=== PATIENT | female | born 1985 | race Two or more races ===

== ENCOUNTER 2019-01-05 09:38 | Emergency (ER) | payer OTHER ==
[~2019-01-05] VITALS: Ht 152.4 cm; Wt 44.5 kg
== END 2019-01-05 15:51 | disposition home or self-care (01) ==
LOC: ER 09:38
DX: K52.89 Other specified noninfective gastroenteritis and colitis (principal); R10.2 Pelvic and perineal pain

== ENCOUNTER 2021-04-03 08:00 | Outpatient (CLI) | payer OTHER | END 2021-04-03 08:30 | disposition home or self-care (01) | LOC: PPH VACUNA 08:00 | PROVIDERS: ATTEND Emergency Medicine Pediatric Emergency Medicine | DX: Z23 Encounter for immunization (principal) ==

== ENCOUNTER 2021-05-15 09:04 | Emergency (ER) | payer OTHER ==
[~2021-05-15] VITALS: Ht 152.4 cm; Wt 45.4 kg
[2021-05-15] MEDS ORDERED: DICLOFENAC POTA50 MG PO (11:44)
[2021-05-15] MEDS ORDERED: ORPHENADRINE C100 MG PO (11:44)
== END 2021-05-15 13:17 | disposition home or self-care (01) ==
LOC: ER 09:04
DX: B34.9 Viral infection, unspecified (principal); J32.9 Chronic sinusitis, unspecified; R51.9 Headache, unspecified; Z03.818 Encounter for observation for suspected exposure to other biological agents ruled out

== ENCOUNTER 2023-06-17 11:52 | Emergency (ER) | payer OTHER ==
[~2023-06-17] VITALS: Ht 152.4 cm; Wt 47.6 kg
[~2023-06-17 11:52] MED LIST: DICLOFENAC POTA50 MG PO; ORPHENADRINE C100 MG PO
[2023-06-17] MEDS ORDERED: FAMOTIDINE/PF 20 MG/2 ML VIAL IV ONE (15:15)
[2023-06-17] MEDS ORDERED: 0.9 % SODIUM CHLORIDE 1,000 ML IV ONE (15:15)
[2023-06-17] MEDS ORDERED: ONDANSETRON HCL 2 MG/ML VIAL IV ONE (15:15)
[2023-06-17 16:02] LABS: HEMATOCRIT 37.8 % (36.0-45.00); HEMOGLOBIN 11.7 g/dL (12.0-15.00); MEAN CORPUSCULAR HEMOGLOBIN 18.7 pg (27.00-32.0); MEAN CORPUSCULAR HGB CONC 30.9 g/dl (32.0-36.0); PLATELET COUNT 432 K/uL (150-450); RED BLOOD COUNT 6.26 M/uL (4.00-6.00); RED CELL DISTRIBUTION WIDTH 16.8 % (11.5-14.5)
[2023-06-17 16:03] LABS: MEAN CELL VOLUME 60.4 fL (80.00-100.00)
[2023-06-17 16:32] LABS: ALBUMIN 2.9 gm/dL (3.4-5.0); BILIRUBIN TOTAL 0.73 mg/dL (0.3-1.2); CALCIUM 9.2 mg/dL (8.5-10.1); CREATININE SERUM 0.4 mg/dL (0.55-1.02); GFR 179.6; GLOBULINA 3.6 G/DL (2.4-3.5); POTASSIUM 4.24 mEq/L (3.5-5.1); TOTAL PROTEIN 6.5 gm/dL (6.4-8.2)
[2023-06-17 18:29] LABS: URINE APPEARANCE Clear; URINE BILIRRUBIN Negative (NEGATIVE); URINE BLOOD Negative; URINE COLOR Yellow; URINE GLUCOSE Negative (NEGATIVE); URINE LEUKOCYTE Negative; URINE NITRATE Negative; URINE PROTEIN Trace (NEGATIVE); URINE UROBILINOGEN 0.2 E.U./dl
[2023-06-17 18:33] LABS: URINE BACTERIA 1233.5 uL (0.0-1933); URINE EPITHELIAL CELLS 30.3 uL (0.0-38.8); URINE WBC 18.3 uL (0.0-23.2)
[2023-06-17] MEDS ORDERED: ONDANSETRON ODT4 MG PO (19:11)
[2023-06-17] MEDS ORDERED: INTESTINEX680 M1 PO (19:11)
[2023-06-17] MEDS ORDERED: PEPCID AC20 MG PO (19:11)
[2023-06-17] MEDS ORDERED: LACTOBACILLUS ACIDOPHILUS 1 CAP CAP PO ONE (19:15)
== END 2023-06-17 19:32 | disposition home or self-care (01) ==
LOC: ER 11:52
PROVIDERS: Nurse Practitioner Family
DX: O26.891 Other specified pregnancy related conditions, first trimester (principal); R10.2 Pelvic and perineal pain; O21.8 Other vomiting complicating pregnancy; K52.9 Noninfective gastroenteritis and colitis, unspecified; Z3A.08 8 weeks gestation of pregnancy

== ENCOUNTER 2023-06-23 10:02 | Emergency (ER) | payer OTHER ==
[~2023-06-23] VITALS: Ht 152.4 cm; Wt 48.1 kg
[~2023-06-23 10:02] MED LIST changes: +INTESTINEX680 M1 PO; +ONDANSETRON ODT4 MG PO; +PEPCID AC20 MG PO
[2023-06-23 11:28] LABS: HEMATOCRIT 33.4 % (36.0-45.00); HEMOGLOBIN 10.8 g/dL (12.0-15.00); MEAN CELL VOLUME 60.2 fL (80.00-100.00); MEAN CORPUSCULAR HEMOGLOBIN 19.5 pg (27.00-32.0); MEAN CORPUSCULAR HGB CONC 32.4 g/dl (32.0-36.0); PLATELET COUNT 442 K/uL (150-450); RED BLOOD COUNT 5.54 M/uL (4.00-6.00); RED CELL DISTRIBUTION WIDTH 16.9 % (11.5-14.5)
[2023-06-23 11:50] LABS: URINE APPEARANCE Clear; URINE BILIRRUBIN Negative (NEGATIVE); URINE BLOOD Negative; URINE COLOR Yellow; URINE GLUCOSE Negative (NEGATIVE); URINE LEUKOCYTE Negative; URINE NITRATE Negative; URINE PROTEIN Negative (NEGATIVE); URINE UROBILINOGEN 0.2 E.U./dl
[2023-06-23 11:54] LABS: URINE BACTERIA 138.5 uL (0.0-1933); URINE EPITHELIAL CELLS 2.2 uL (0.0-38.8); URINE WBC 2.6 uL (0.0-23.2)
[2023-06-23 12:06] LABS: URINE RBC 1.1 uL (0.0-20.8)
[2023-06-23] MEDS ORDERED: ANALPRAM HC 2.530 GM RECTAL (12:37)
== END 2023-06-23 13:21 | disposition home or self-care (01) ==
LOC: ER 10:02
PROVIDERS: General Practice
DX: O99.611 Diseases of the digestive system complicating pregnancy, first trimester (principal); Z3A.09 9 weeks gestation of pregnancy; K62.5 Hemorrhage of anus and rectum; K64.8 Other hemorrhoids

== ENCOUNTER 2023-07-18 12:34 | Outpatient (CLI) | payer OTHER ==
[~2023-07-18 12:34] MED LIST changes: +ANALPRAM HC 2.530 GM RECTAL
== END 2023-07-18 12:40 | disposition home or self-care (01) ==
LOC: PRENATAL 12:34
PROVIDERS: ATTEND Obstetrics & Gynecology Maternal & Fetal Medicine
DX: O36.80X0 Pregnancy with inconclusive fetal viability, not applicable or unspecified (principal); Z36.82 Encounter for antenatal screening for nuchal translucency; O09.519 Supervision of elderly primigravida, unspecified trimester; Z3A.12 12 weeks gestation of pregnancy

== ENCOUNTER → 2023-11-07 09:05 | Outpatient (CLI) | payer OTHER ==
[~2023-11-07 09:05] MED LIST changes: +VISTARIL25 MG PO
== END | disposition home or self-care (01) ==
LOC: PRENATAL 09:05
PROVIDERS: ATTEND Obstetrics & Gynecology Maternal & Fetal Medicine
DX: O26.849 Uterine size-date discrepancy, unspecified trimester (principal); O09.519 Supervision of elderly primigravida, unspecified trimester; O36.5990 Maternal care for other known or suspected poor fetal growth, unspecified trimester, not applicable or unspecified; Z3A.28 28 weeks gestation of pregnancy

== ENCOUNTER 2023-11-14 09:23 | Outpatient (CLI) | payer OTHER | END 2023-11-14 09:24 | disposition home or self-care (01) | LOC: PRENATAL 09:23 | PROVIDERS: ATTEND Obstetrics & Gynecology Maternal & Fetal Medicine | DX: O36.8130 Decreased fetal movements, third trimester, not applicable or unspecified (principal); O09.513 Supervision of elderly primigravida, third trimester; O36.5930 Maternal care for other known or suspected poor fetal growth, third trimester, not applicable or unspecified; Z3A.29 29 weeks gestation of pregnancy ==

== ENCOUNTER 2023-11-28 08:29 | Outpatient (CLI) | payer OTHER | END 2023-11-28 08:30 | disposition home or self-care (01) | LOC: PRENATAL 08:29 | PROVIDERS: ATTEND Obstetrics & Gynecology Maternal & Fetal Medicine | DX: O26.849 Uterine size-date discrepancy, unspecified trimester (principal); O09.519 Supervision of elderly primigravida, unspecified trimester; O36.8199 Decreased fetal movements, unspecified trimester, other fetus; O36.5990 Maternal care for other known or suspected poor fetal growth, unspecified trimester, not applicable or unspecified; Z3A.31 31 weeks gestation of pregnancy ==

== ENCOUNTER 2023-12-06 14:48 | Emergency (ER) | payer OTHER ==
[~2023-12-06] VITALS: Ht 152.4 cm; Wt 47.6 kg
[2023-12-06] MEDS ORDERED: CHILDREN'S ASPI81 MG (15:03)
[2023-12-06] MEDS ORDERED: PRENATAL 19 TA1 EAC2 (15:03)
[2023-12-06] MEDS ORDERED: PROFERRIN-FORT1 EACH (15:03)
[2023-12-06 16:58] LABS: HEMATOCRIT 34.2 % (36.0-45.00); HEMOGLOBIN 10.6 g/dL (12.0-15.00); MEAN CELL VOLUME 62.2 fL (80.00-100.00); MEAN CORPUSCULAR HEMOGLOBIN 19.2 pg (27.00-32.0); PLATELET COUNT 368 K/uL (150-450); RED CELL DISTRIBUTION WIDTH 18.3 % (11.5-14.5)
[2023-12-06] MEDS ORDERED: 0.9 % SODIUM CHLORIDE 1,000 ML IV STA (17:09)
[2023-12-06 17:29] LABS: BILIRUBIN TOTAL 0.19 mg/dL (0.3-1.2); CREATININE SERUM 0.5 mg/dL (0.55-1.02); GFR 138.83; GLOBULINA 4.4 G/DL (2.4-3.5); POTASSIUM 3.51 mEq/L (3.5-5.1); TOTAL PROTEIN 6.4 gm/dL (6.4-8.2)
[2023-12-06 17:49] LABS: PH,URINE 5.5 (5.0-8.0); URINE APPEARANCE Clear; URINE BILIRRUBIN Negative (NEGATIVE); URINE BLOOD Negative; URINE COLOR Yellow; URINE GLUCOSE Negative (NEGATIVE); URINE KETONE Negative (NEGATIVE); URINE LEUKOCYTE Negative; URINE NITRATE Negative; URINE PROTEIN Negative (NEGATIVE); URINE UROBILINOGEN 0.2 E.U./dl
[2023-12-06 17:53] LABS: URINE BACTERIA 457.3 uL (0.0-1933); URINE EPITHELIAL CELLS 16.8 uL (0.0-38.8); URINE RBC 2.2 uL (0.0-20.8); URINE WBC 5.3 uL (0.0-23.2)
== END 2023-12-06 18:46 | disposition home or self-care (01) ==
LOC: ER 14:50
PROVIDERS: General Practice
DX: O26.893 Other specified pregnancy related conditions, third trimester (principal); Z3A.32 32 weeks gestation of pregnancy; R53.1 Weakness; D69.3 Immune thrombocytopenic purpura; Z20.822 Contact with and (suspected) exposure to COVID-19

== ENCOUNTER 2023-12-09 11:11 | Outpatient (CLI) | payer OTHER ==
[~2023-12-09 11:11] MED LIST changes: +CHILDREN'S ASPI81 MG; +PRENATAL 19 TA1 EAC2; +PROFERRIN-FORT1 EACH
[2023-12-09] MEDS ORDERED: PRENATAL TABLE1 EAC1 (12:05)
[2023-12-09] MEDS ORDERED: 0.9 % SODIUM CHLORIDE 1,000 ML IV SCH (12:15)
[2023-12-09 12:38] LABS: URINE APPEARANCE Clear; URINE BILIRRUBIN Negative (NEGATIVE); URINE BLOOD Negative; URINE COLOR Yellow; URINE GLUCOSE Negative (NEGATIVE); URINE KETONE Negative (NEGATIVE); URINE LEUKOCYTE Negative; URINE NITRATE Negative; URINE PROTEIN Negative (NEGATIVE); URINE UROBILINOGEN 0.2 E.U./dl
[2023-12-09 12:41] LABS: URINE EPITHELIAL CELLS 36.7 uL (0.0-38.8); URINE WBC 5.8 uL (0.0-23.2)
[2023-12-09 12:49] LABS: HEMATOCRIT 31.4 % (36.0-45.00); HEMOGLOBIN 10.1 g/dL (12.0-15.00); MEAN CORPUSCULAR HEMOGLOBIN 19.8 pg (27.00-32.0); MEAN CORPUSCULAR HGB CONC 32.1 g/dl (32.0-36.0); PLATELET COUNT 332 K/uL (150-450); RED CELL DISTRIBUTION WIDTH 18.5 % (11.5-14.5)
[2023-12-09 12:50] LABS: MEAN CELL VOLUME 61.6 fL (80.00-100.00)
[2023-12-09 13:00] LABS: AMYLASE 48 U/L (25-115); LIPASE 24 U/L (13-75)
[2023-12-09] MEDS ORDERED: PROMETHAZINE HCL 25 MG/ML AMPUL IV NR (17:45)
[2023-12-09] MEDS ORDERED: FAMOTIDINE/PF 20 MG/2 ML VIAL IV STA (18:02)
[2023-12-10] MEDS ORDERED: FAMOTIDINE/PF 20 MG/2 ML VIAL IV SCH (12:00)
== END 2023-12-10 13:47 | disposition home or self-care (01) ==
LOC: OBS/DEL 11:11
PROVIDERS: ATTEND Obstetrics & Gynecology
DX: O26.893 Other specified pregnancy related conditions, third trimester (principal); K52.89 Other specified noninfective gastroenteritis and colitis; Z3A.33 33 weeks gestation of pregnancy

== ENCOUNTER 2023-12-19 10:54 | Outpatient (CLI) | payer OTHER ==
[~2023-12-19 10:54] MED LIST changes: +PRENATAL TABLE1 EAC1
== END 2023-12-19 10:55 | disposition home or self-care (01) ==
LOC: PRENATAL 10:54
PROVIDERS: ATTEND Obstetrics & Gynecology Maternal & Fetal Medicine
DX: O26.843 Uterine size-date discrepancy, third trimester (principal); O36.8130 Decreased fetal movements, third trimester, not applicable or unspecified; O09.513 Supervision of elderly primigravida, third trimester; O36.5930 Maternal care for other known or suspected poor fetal growth, third trimester, not applicable or unspecified; Z3A.34 34 weeks gestation of pregnancy

== ENCOUNTER 2023-12-26 08:34 | Outpatient (CLI) | payer OTHER | END 2023-12-26 08:36 | disposition home or self-care (01) | LOC: PRENATAL 08:34 | PROVIDERS: ATTEND Obstetrics & Gynecology Maternal & Fetal Medicine | DX: O36.8199 Decreased fetal movements, unspecified trimester, other fetus (principal); O36.5990 Maternal care for other known or suspected poor fetal growth, unspecified trimester, not applicable or unspecified; O09.519 Supervision of elderly primigravida, unspecified trimester; Z3A.35 35 weeks gestation of pregnancy ==

== ENCOUNTER 2023-12-30 06:15 | Inpatient (IN) | payer OTHER ==
[~2023-12-30] VITALS: Ht 152.4 cm; Wt 1.4 kg
[2023-12-30] VITALS (7 sets, daily range): BP systolic 109–120; BP diastolic 66–78; O2SAT 100
[2023-12-30] MEDS ORDERED: RINGERS SOLUTION,LACTATED 1,000 ML IV SCH (06:45)
[2023-12-30] MEDS ORDERED: BETAMETHASONE ACETATE,SOD PHOS 30 MG/5 ML ML IM SCH (08:00)
[2023-12-30 08:32] LABS: HEMATOCRIT 32.5 % (36.0-45.00); HEMOGLOBIN 10.1 g/dL (12.0-15.00); MEAN CORPUSCULAR HEMOGLOBIN 19.3 pg (27.00-32.0); PLATELET COUNT 281 K/uL (150-450); RED BLOOD COUNT 5.21 M/uL (4.00-6.00); RED CELL DISTRIBUTION WIDTH 17.6 % (11.5-14.5)
[2023-12-30 08:40] LABS: MEAN CELL VOLUME 62.3 fL (80.00-100.00)
[2023-12-30 08:44] LABS: PH,URINE 5.5 (5.0-8.0); URINE APPEARANCE Clear; URINE BILIRRUBIN Negative (NEGATIVE); URINE BLOOD Negative; URINE COLOR Yellow; URINE GLUCOSE Negative (NEGATIVE); URINE KETONE Negative (NEGATIVE); URINE LEUKOCYTE Negative; URINE NITRATE Negative; URINE PROTEIN Negative (NEGATIVE); URINE UROBILINOGEN 0.2 E.U./dl
[2023-12-30 08:48] LABS: URINE BACTERIA 1960.3 uL (0.0-1933); URINE EPITHELIAL CELLS 79.6 uL (0.0-38.8); URINE RBC 7.7 uL (0.0-20.8); URINE WBC 16.6 uL (0.0-23.2)
[2023-12-30 09:01] LABS: URINE CAST 0.45 uL (0.0-1.40)
[2023-12-30 09:11] LABS: INR < 0.93; PARTIAL THROMBOPLASTIN TIME 26.4 SECONDS (22.0-34.0)
[2023-12-30] MEDS ORDERED: MORPHINE SULFATE 4 MG/ML CARTRIDGE IV ONE (23:15)
[2023-12-31 04:32] VITALS: BP 109/67
[2023-12-31 07:26] VITALS: BP 107/69; O2SAT 100
[2023-12-31] MEDS ORDERED: BETAMETHASONE ACETATE,SOD PHOS 30 MG/5 ML ML IM SCH (09:00)
[2023-12-31] MEDS ORDERED: ERYTHROMYCIN BASE 1 GM TUBE OP ONE ×2 (10:04→15:00)
[2023-12-31] MEDS ORDERED: OXYTOCIN 10 UNITS/ML VIAL ONE (10:05)
[2023-12-31] MEDS ORDERED: MEPERIDINE HCL/PF 50 MG/ML VIAL IM PRN (11:45)
[2023-12-31] MEDS ORDERED: PROMETHAZINE HCL 50 MG/ML AMPUL IM PRN (11:45)
[2023-12-31 12:11] LABS: ALBUMIN 1.7 gm/dL (3.4-5.0); BILIRUBIN TOTAL 0.39 mg/dL (0.3-1.2); CALCIUM 8.5 mg/dL (8.5-10.1); CREATININE SERUM 0.48 mg/dL (0.55-1.02); GFR 145.52; POTASSIUM 3.5 mEq/L (3.5-5.1); TOTAL PROTEIN 4.7 gm/dL (6.4-8.2)
[2023-12-31] MEDS ORDERED: MORPHINE SULFATE 4 MG/ML VIAL IV ONE (14:50)
[2023-12-31] MEDS ORDERED: OXYTOCIN 10 UNITS/ML VIAL IV ONE (15:00)
[2023-12-31 15:45] VITALS: BP 120/75
[2023-12-31 18:39] LABS: HEMATOCRIT 32.8 % (36.0-45.00); HEMOGLOBIN 10.2 g/dL (12.0-15.00); MEAN CORPUSCULAR HEMOGLOBIN 19.1 pg (27.00-32.0); PLATELET COUNT 300 K/uL (150-450); RED BLOOD COUNT 5.32 M/uL (4.00-6.00); RED CELL DISTRIBUTION WIDTH 17.5 % (11.5-14.5)
[2023-12-31 18:41] LABS: MEAN CELL VOLUME 61.7 fL (80.00-100.00)
[2023-12-31 20:00] VITALS: BP 118/65
[2024-01-01 01:40] VITALS: BP 125/70
[2024-01-01 06:36] VITALS: BP 123/74
[2024-01-01] MEDS ORDERED: OxyCODONE HCL/APAP UD (PERCOCET) PO PRN (08:00)
[2024-01-01 08:45] VITALS: BP 124/83
[2024-01-01] MEDS ORDERED: PNV,CALCIUM 72/IRON/FOLIC ACID 1 TAB TABLET PO SCH (09:00)
[2024-01-01] MEDS ORDERED: DOCUSATE SODIUM 100MG CAP PO SCH (09:00)
[2024-01-01] MEDS ORDERED: SIMETHICONE 125 MG CAPSULE PO SCH (09:00)
[2024-01-01 11:26] VITALS: BP 124/83
[2024-01-01 16:00] VITALS: BP 125/82
[2024-01-02] VITALS: BP 135/67
[2024-01-02 09:12] VITALS: BP 132/73
[2024-01-02 14:32] VITALS: BP 125/80
[2024-01-02 17:03] VITALS: BP 125/80
[2024-01-02 21:25] VITALS: BP 130/81
[2024-01-03 02:32] VITALS: BP 139/86
[2024-01-03 09:00] VITALS: BP 115/88
== END 2024-01-03 15:10 | disposition home or self-care (01) | DRG 786 ==
LOC: OB/GYN 06:15 → LDR 06:15 → O/R 12-31 10:45 → OB/GYN 12-31 12:51
PROVIDERS: ADMIT Obstetrics & Gynecology; ATTEND Obstetrics & Gynecology
PROC: 4A1HXCZ Monitoring of Products of Conception, Cardiac Rate, External Approach (ICD-10-PCS; 2023-12-30)
PROC: BY4FZZZ Ultrasonography of Third Trimester, Single Fetus (ICD-10-PCS; 2023-12-31)
PROC: 10D00Z1 Extraction of Products of Conception, Low, Open Approach (ICD-10-PCS; principal; 2023-12-31 10:30)
DX: O36.5930 Maternal care for other known or suspected poor fetal growth, third trimester, not applicable or unspecified (principal); O60.14X0 Preterm labor third trimester with preterm delivery third trimester, not applicable or unspecified; O26.843 Uterine size-date discrepancy, third trimester; O36.8130 Decreased fetal movements, third trimester, not applicable or unspecified; Z3A.36 36 weeks gestation of pregnancy; Z37.0 Single live birth; Z20.822 Contact with and (suspected) exposure to COVID-19